=== PATIENT | male | born 1970 | race Caucasian/White ===

== ENCOUNTER 2022-07-01 07:39 | Emergency (ER) | payer OTHER ==
[2022-07-01 07:47] VITALS: BP 171/101
== END 2022-07-01 08:39 | disposition home or self-care (01) ==
LOC: ED 07:39
DX: S61.215A Laceration without foreign body of left ring finger without damage to nail, initial encounter (principal); Z28.310 Unvaccinated for COVID-19; W26.8XXA Contact with other sharp object(s), not elsewhere classified, initial encounter; Y92.219 Unspecified school as the place of occurrence of the external cause; Y93.G1 Activity, food preparation and clean up; Y99.0 Civilian activity done for income or pay